=== PATIENT | female | born 1980 | race Caucasian/White ===

== ENCOUNTER 2016-11-05 19:22 | Emergency (ER) | payer BC, OTHER ==
[~2016-11-05] VITALS: Ht 167.6 cm; Wt 74.8 kg
[~2016-11-05 19:22] MED LIST: DIFLUCAN150 MG PO
[2016-11-05] MEDS ORDERED: EFFEXOR XR150 MG PO (19:30)
[2016-11-05] MEDS ORDERED: ARTHRITIS PAI42.5 GM TP (19:38)
[2016-11-05] MEDS ORDERED: NAPROSYN500 MG PO (19:38)
[2016-11-05] MEDS ORDERED: VOLTAREN GEL1% TP (19:43)
== END 2016-11-05 19:59 | disposition home or self-care (01) ==
LOC: ED 19:22
DX: M25.562 Pain in left knee (principal); F17.200 Nicotine dependence, unspecified, uncomplicated; Z90.49 Acquired absence of other specified parts of digestive tract

== ENCOUNTER 2017-12-29 14:47 | Emergency (ER) | payer BC, OTHER ==
[~2017-12-29] VITALS: Ht 170.1 cm; Wt 65.8 kg
[~2017-12-29 14:47] MED LIST changes: +ARTHRITIS PAI42.5 GM TP; +EFFEXOR XR150 MG PO; +NAPROSYN500 MG PO; +VOLTAREN GEL1% TP
[2017-12-29] MEDS ORDERED: Motrin,Rufen800 MG PO (15:29)
== END 2017-12-29 15:38 | disposition home or self-care (01) ==
LOC: ED 14:47
DX: S96.912A Strain of unspecified muscle and tendon at ankle and foot level, left foot, initial encounter (principal); Z79.899 Other long term (current) drug therapy; Z90.49 Acquired absence of other specified parts of digestive tract; W17.81XA Fall down embankment (hill), initial encounter; Y93.89 Activity, other specified; Y92.828 Other wilderness area as the place of occurrence of the external cause; Y99.8 Other external cause status

== ENCOUNTER 2018-02-12 11:39 | Emergency (ER) | payer BC, OTHER ==
[~2018-02-12] VITALS: Ht 170.1 cm; Wt 65.8 kg
[~2018-02-12 11:39] MED LIST changes: +Motrin,Rufen800 MG PO
== END 2018-02-12 13:47 | disposition home or self-care (01) ==
LOC: ED 11:39
DX: S92.352A Displaced fracture of fifth metatarsal bone, left foot, initial encounter for closed fracture (principal); F17.200 Nicotine dependence, unspecified, uncomplicated; Z90.49 Acquired absence of other specified parts of digestive tract; Z98.890 Other specified postprocedural states; W19.XXXA Unspecified fall, initial encounter; Y93.89 Activity, other specified; Y92.89 Other specified places as the place of occurrence of the external cause; Y99.9 Unspecified external cause status

== ENCOUNTER 2019-02-09 18:14 | Emergency (ER) | payer SELFPAY ==
[~2019-02-09] VITALS: Ht 172.7 cm; Wt 74.8 kg
[2019-02-09] MEDS ORDERED: IBUPROFEN600 MG PO (18:32)
== END 2019-02-09 18:42 | disposition home or self-care (01) ==
LOC: ED 18:14
DX: S92.351A Displaced fracture of fifth metatarsal bone, right foot, initial encounter for closed fracture (principal); Z79.899 Other long term (current) drug therapy; Z90.49 Acquired absence of other specified parts of digestive tract; W01.0XXA Fall on same level from slipping, tripping and stumbling without subsequent striking against object, initial encounter; X50.1XXA Overexertion from prolonged static or awkward postures, initial encounter; Y93.89 Activity, other specified; Y92.480 Sidewalk as the place of occurrence of the external cause; Y99.8 Other external cause status

== ENCOUNTER → 2020-02-19 | Outpatient (CLI) | payer OTHER ==
[~2020-02-19] MED LIST changes: +IBUPROFEN600 MG PO
[2020-02-19 16:30] LABS: HEMATOCRIT 43.3 % (37.0-47.0); MEAN CELL VOLUME 87.1 fl (81.0-99.0); MEAN CORPUSCULAR HGB 28.4 pg (27.0-31.0); MEAN CORPUSCULAR HGB CONC 32.6 g/dl (33.0-37.0); MEAN PLATELET VOLUME 11.1 fl (9.6-12.3); RED BLOOD COUNT 4.97 10*6/uL (4.10-5.10); RED CELL DISTRI WIDTH 11.5 % (0-14.5); WHITE BLOOD COUNT 14.6 10*3/uL (4.8-10.8)
[2020-02-19 16:57] LABS: ALBUMIN 4.5 gm/dl (3.1-4.5); ALKALINE PHOSPHATASE 75 U/L (45-117); BUN 16 mg/dl (7-24); CHLORIDE 107 mmol/L (98-107); CREATININE 0.81 mg/dL (0.55-1.02); POTASSIUM 4.1 mmol/L (3.5-5.1); SGOT/AST 12 IU/L (3-35); SGPT/ALT 19 U/L (12-78); SODIUM 137 mmol/L (136-145); TOTAL PROTEIN 8.4 gm/dL (6.4-8.2)
[2020-02-20 07:10] LABS: HEPATITIS B SURFACE AB Reactive (.)
[2020-02-20 17:11] LABS: MUMPS ANTIBODIES, IGG 59.5 AU/mL (Immune >10.9); RUBEOLA AB IGG >300.0 AU/mL (Immune >16.4); VARICELLA-ZOSTER IGG 2428 index (Immune >165)
== END | disposition home or self-care (01) ==
LOC: LAB 16:08
PROVIDERS: Family Medicine
DX: Z02.0 Encounter for examination for admission to educational institution (principal); R53.81 Other malaise

== ENCOUNTER → 2020-04-02 | Outpatient (CLI) | payer OTHER | END | disposition home or self-care (01) | LOC: COVID19 00:08 | PROVIDERS: ATTEND Nurse Practitioner Family | DX: Z02.0 Encounter for examination for admission to educational institution (principal); Z20.828 Contact with and (suspected) exposure to other viral communicable diseases ==